=== PATIENT | male | born 1995 | race Caucasian/White ===

== ENCOUNTER 2020-07-27 17:56 | Emergency (ER) | payer SELFPAY ==
[~2020-07-27] VITALS: Ht 172.7 cm; Wt 80.0 kg
[2020-07-27 18:07] VITALS: TEMP 97.3
[2020-07-27] MEDS ORDERED: PERCOCET 325 MG1 TA2 PO (19:46)
[2020-07-27 20:30] VITALS: BP 130/86; PULSE 80
== END 2020-07-27 21:15 | disposition home or self-care (01) ==
LOC: COL.ER 17:56
DX: S43.102A Unspecified dislocation of left acromioclavicular joint, initial encounter (principal); W18.39XA Other fall on same level, initial encounter
CPT/HCPCS: J3010